=== PATIENT | male | born 1965 | race Caucasian/White ===

== ENCOUNTER 2019-05-02 15:14 | Emergency (ER) | payer MEDICARE ==
[~2019-05-02] VITALS: Ht 170.2 cm; Wt 99.8 kg
[2019-05-02] MEDS ORDERED: NOHOMEMEDICATIONS (15:27)
[2019-05-02] MEDS ORDERED: KEFLEX500 M1 PO (15:37)
[2019-05-02] MEDS ORDERED: TYLENOL WITH CO1 TA1 PO (16:20)
[2019-05-02 16:50] VITALS: BP 140/60
== END 2019-05-02 16:51 | disposition home or self-care (01) ==
LOC: M.ERS 15:14
PROC: 0HDQXZZ Extraction of Finger Nail, External Approach (ICD-10-PCS; principal; 2019-05-02)
DX: S61.101A Unspecified open wound of right thumb with damage to nail, initial encounter (principal); F17.210 Nicotine dependence, cigarettes, uncomplicated; X58.XXXA Exposure to other specified factors, initial encounter; Y93.89 Activity, other specified; Y92.89 Other specified places as the place of occurrence of the external cause; Y99.8 Other external cause status

== ENCOUNTER 2020-01-01 08:46 | Emergency (ER) | payer MEDICARE ==
[~2020-01-01] VITALS: Ht 170.2 cm; Wt 99.8 kg
[~2020-01-01 08:46] MED LIST: KEFLEX500 M1 PO; NOHOMEMEDICATIONS; TYLENOL WITH CO1 TA1 PO
[2020-01-01 09:24] VITALS: BP 133/91
== END 2020-01-01 09:25 | disposition home or self-care (01) ==
LOC: M.ERS 08:46
DX: R10.12 Left upper quadrant pain (principal); F17.210 Nicotine dependence, cigarettes, uncomplicated

== ENCOUNTER 2020-04-08 03:45 | Emergency (ER) | payer MEDICARE ==
[~2020-04-08] VITALS: Ht 170.2 cm; Wt 104.3 kg
[2020-04-08] MEDS ORDERED: FLEXERIL PO (04:16)
[2020-04-08] MEDS ORDERED: NORCO 5-325 TA1 EAC2 PO (04:16)
[2020-04-08] MEDS ORDERED: BACTRIM DS TAB1 EACH PO (04:16)
[2020-04-08 04:25] VITALS: BP 122/67
== END 2020-04-08 04:25 | disposition home or self-care (01) ==
LOC: M.ERS 03:45
DX: M54.6 Pain in thoracic spine (principal)

== ENCOUNTER 2020-05-02 13:08 | Emergency (ER) | payer MEDICARE ==
[~2020-05-02] VITALS: Ht 170.2 cm; Wt 102.1 kg
[~2020-05-02 13:08] MED LIST changes: +BACTRIM DS TAB1 EACH PO; +FLEXERIL PO; +NORCO 5-325 TA1 EAC2 PO
[2020-05-02] MEDS ORDERED: NORCO 5-325 TA1 EAC2 PO (14:00)
[2020-05-02 14:30] VITALS: BP 128/75
== END 2020-05-02 14:30 | disposition home or self-care (01) ==
LOC: M.ERS 13:08
DX: M54.6 Pain in thoracic spine (principal)

== ENCOUNTER 2020-05-31 16:12 | Inpatient (IN) | payer MEDICARE ==
[~2020-05-31] VITALS: Ht 170.2 cm; Wt 95.3 kg
[2020-05-31 16:15] VITALS: BP 137/75
[2020-05-31] MEDS ORDERED: BAYER BACK & B1 EACH PO (16:21)
[2020-05-31 16:37] LABS: ABSOLUTE BASOPHILS 0.1 thou/uL (0.0-0.2); ABSOLUTE EOSINOPHILS 0.1 thou/uL (0.0-0.7); ABSOLUTE LYMPHOCYTES 1.6 thou/uL (0.8-5.3); ABSOLUTE MONOCYTES 0.5 thou/uL (0.0-1.2); ABSOLUTE NEUTROPHILS 4.5 thou/uL (1.6-8.1); EOSINOPHILS 1.2 %; HEMATOCRIT 41.3 % (42.0-52.0); LYMPHOCYTES 23.6 %; MCHC 33.9 g/dL (28.0-37.0); MCV 94.4 fL (80.0-100.0); MONOCYTES 7.7 %; MPV 9.3 fl. (7.2-11.1); NUCLEATED RBCS 0 /100WBC; PLATELET COUNT* 151 thou/uL (150-400); POLYS 66.5 %; RBC 4.38 mil/uL (4.50-6.00); RDW-CV 15.6 % (10.5-14.5); WBC 6.7 thou/uL (4.0-11.0)
[2020-05-31 16:52] LABS: CALCIUM 8.3 mg/dL (8.5-10.1); CREATININE 1.1 mg/dL (0.6-1.3); POTASSIUM 3.1 mmol/L (3.5-5.1)
[2020-05-31 16:55] LABS: APTT 29.3 Seconds (25.0-31.3); INR 1.1; PROTIME 11.2 Seconds (9.20-11.50)
[2020-05-31 17:02] LABS: ALBUMIN 3.5 g/dL (3.4-5.0); TOTAL BILIRUBIN 0.8 mg/dL (<0.1-1.0); TOTAL PROTEIN 7.5 g/dL (6.4-8.2)
[2020-05-31 18:15] LABS: URINE BILIRUBIN NEGATIVE (Negative); URINE BLOOD NEGATIVE (Negative); URINE CLARITY CLEAR; URINE COLOR YELLOW; URINE GLUCOSE-RANDOM NEGATIVE (Negative); URINE KETONES 2+ (Negative); URINE LEUKOCYTES-REFLEX NEGATIVE (Negative); URINE NITRITE-REFLEX NEGATIVE (Negative); URINE PROTEIN NEGATIVE (Negative); URINE SPECIFIC GRAVITY 1.015 (1.005-1.030); URINE UROBILINOGEN 0.2 E.U./dl (0.2-1.0)
[2020-05-31 21:10] VITALS: BP 112/72
--- NOTE | 2020-06-01 04:18 | NUR ---
PT ADMIT TO ROOM 220. ALERT ORIENTED. WALKER WEAKNESS REPORTED THAT HAS BEEN INCREASING OVER SEVERAL WEEKS. ADMIT K+ WAS 3.1. POTASSIUM 40MEQ GIVEN TWICE. PT HAVING ABD PAIN MOVING DOWN LEGS. MORPHINE GIVEN FOR PAIN WITH GOOD RELIEF REPORTED 2 AFTER MEDICATION. TELEMETRY SHOWS SB/SR. VOIDS PER URINAL.
[2020-06-01 08:00] VITALS: BP 114/73
--- NOTE | 2020-06-01 11:58 | EKG ---
[place] [address] ELECTROCARDIOGRAM REPORT Name: DIANA DE PAZ III Room: [address] ADM IN [facility].#: [id number] Admission: 05/31/20 Attend Phys: Mark Ceron, Discharge: Date of : 65 Date of Service: 05/31/20 1617 Report #: [id number] THIS REPORT FOR: //name// [facility] ED Test Date: 2020-05-31 Test Time: 16:17:44 Pat Name: DIANA DE PAZ Department: Room: 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[place] : 1965 Requested By: Nixon Tejeda Order Number: [id number] MD: José Manuel Mitchell Measurements Intervals [place] Rate: 68 P: 19 GA: 175 QRS: 4 QRSD: 87 T: 56 QT: 397 QTc: 423 Interpretive Statements Sinus rhythm Baseline wander in lead(s) V1 No previous ECG available for comparison Electronically Signed On 06-01-2020 11:58:07 [employer] by José Manuel Mitchell [email or web address] <ELECTRONICALLY SIGNED> By: José Manuel Mitchell MD, [facility] 06/01/20 1158 1617 1617 José Manuel Mitchell MD, [facility] /EPI
[2020-06-01 12:26] VITALS: BP 124/74
[2020-06-01 16:58] VITALS: BP 135/83
--- NOTE | 2020-06-01 17:20 | NUR ---
ASSUMED PT CARE AT 0730, PT AOX4, NO C/O PAIN INITIALLY BUT HAD C/O PAIN THIS AFTERNOON TREATED W/ PRN MORPHINE W/ RELIEF. PT STATES BACLOFEN HELPS SIGNIFICANTLY WELL. PT MOVES SELF IN BED BUT STATES HE IS UNABLE TO WALK RIGHT NOW R/T TINGLING AND DECREASED FEELING IN LE'S ALONG W/ WEAKNESS. PT MOM IN ROOM THIS AFTERNOON AND UPDATED ON POC. MULTIPLE MRI'S ORDERED TODAY, SPOKE W/ DR. MATHUR WHO WANTS THEM PUSHED OFF UNTIL TOMORROW R/T NON-EMERGENT STATUS. PT GOAL IS TO KEEP PAIN UNDER CONTROL. AM ASSESSMENT CHARTED, MEDS PER SEP, HOURLY ROUNDING OBSERVED, FALL PRECAUTIONS IN PLACE, CALL LIGHT W/IN REACH.
[2020-06-01 23:57] VITALS: BP 112/74
--- NOTE | 2020-06-02 05:01 | NUR ---
ASSUMED PT CARE AT APPROX 1930. PT IS AWAKE AND ORIENTED X4. PT IS NOT IN DISTRESS. 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 PT C/O UPPER R/L QUAD ABDOMINAL PAIN AND LOWER BACK PAIN RELIEVED BY PAIN MEDS GIVEN PER MAR. NO ACUTE CHANGES THIS SHIFT. CALL LIGHT WITHIN REACH. HOURLY ROUNDING DONE FOR PT SAFETY. FALL PRECAUTIONS IN PLACE.
[2020-06-02 05:38] VITALS: BP 114/78
--- NOTE | 2020-06-02 07:44 | CON ---
[address] [address] CONSULTATION Name: DIANA DE PAZ III Room: [address] IN .R.#: [id number] Admission: 05/31/20 Attend Phys: Mark Ceron MD Discharge: Date of : 65 Report #: [id number] THIS REPORT FOR: //name// cc: Mark Wagner James B. DO ~ DATE OF SERVICE: 06/01/2020 REQUESTING PHYSICIAN: Dr. Ceron INDICATION FOR CONSULTATION: Lung mass. HISTORY OF PRESENT ILLNESS: A 55-year-old gentleman with past medical history as mentioned below. He is an active smoker. He has a clinical history consistent with COPD, not previously diagnosed and it is possible that he has obstructive sleep apnea as well. The patient at this time is admitted with pain in his back as well as abdomen and band like sensation in the abdomen as well as weakness and tingling in his lower extremities. The patient does have some respiratory complaints as well. He does have some shortness of breath at rest as well as increased with exertion and he does have a calf without much sputum production. These complaints; however, are at baseline. The patient does not appear to be primarily concerned about his respiratory complaints. He does not have any upper respiratory complaints and he has not had any fever or chills. He also does not describe any change in his bowel habits, nausea, vomiting, diarrhea or constipation. He does not describe urinary complaints. REVIEW OF SYSTEMS: For 10 points is negative except as mentioned above. PAST MEDICAL HISTORY: Wrist as well as a clavicle and arm fractures. There is a clinical history consistent with, not previously diagnosed. SOCIAL HISTORY: Extensive history of smoking 2 packs a day more than 40 years, still smokes. No known history of heavy alcohol use or illegal drug use. ALLERGIES: No known drug allergies. CURRENT MEDICATIONS: List in [employer] reviewed. HOME MEDICATIONS: List in [employer] reviewed. FAMILY HISTORY: Father also had lung cancer. PHYSICAL EXAMINATION: GENERAL: He is alert, awake and oriented. VITAL SIGNS: Has a pulse of 63 and a blood pressure of 135/83. [place] [address] CONSULTATION Name: BALDEVDIANALAURENCE Henriquez III Room: [address]#: [id number] Admission: 05/31/20 Attend Phys: Mark Ceron MD Discharge: Date of : 65 Report #: [id number] with a temperature of 36.7. He is saturating 96%. He is not on supplemental oxygen. HEENT: Head is normocephalic and atraumatic. Pupils are equal and reactive. There is no throat erythema. NECK: Does not show raised JVP, asymmetry, mass or lymph nodes. CHEST: Symmetrical expansion on inspection and palpation. On auscultation, breath sounds are bilaterally equal, but decreased. I do not hear any added sounds. HEART: Regular. There is no murmur. ABDOMEN: Soft. He complains of vague discomfort and palpation of abdomen. EXTREMITIES: Lower extremities show no edema, no calf tenderness. SKIN: Dry and intact. NEUROLOGICAL: He did move all extremities bilaterally equally and spontaneously. No motor deficit identified. LABORATORY DATA: The patient's CT chest is in [facility] reviewed. I reviewed both the films as well as report. He has had several other imaging performed as well. I reviewed all of those reports. I reviewed his chest x-ray film myself as well. Lab work is in [facility] and this is also reviewed. ASSESSMENT AND PLAN: 1. Lung mass/liver masses/a suspicion of metastatic malignancy. While other etiologies are still possible as well, the patient's presentation is unfortunately most consistent with a metastatic non-small cell carcinoma of the lung. Mass in the left lung is fairly large in size and it should be possible to biopsy this using a CT-guided biopsy technique; however, this is located fairly deep in the lung and this is therefore likely to result in a pneumothorax if the biopsy is performed. If we do perform a CT-guided biopsy, the patient may therefore subsequently need a chest tube for a few days if the pneumothorax is off a significant size. We will therefore explore if there is another way to obtain tissue diagnosis. The patient also is in significant pain at this time, which does need to be controlled first. There are various MRI ordered by other services. We will await results. We will subsequently review with the interventional radiologist regarding the best approach to obtaining a tissue diagnosis. Potentially a liver biopsy could be considered if no additional amenable lesions are seen on the workup, which is pending. 2. Back pain/abdominal pain. I understand that suspicion at this time is that this is secondary to metastatic disease, possibly to the spine. We will await workup. The patient regardless will benefit from a PET scan as an outpatient. 3. Smoker/suspected chronic obstructive pulmonary disease. Plan PFTs later. We will start nebulized bronchodilators if the patient has more respiratory complaints. [address] [address] CONSULTATION Name: BALDEVDIANALAURENCE Henriquez III Room: [address] IN M.R.#: [id number] Admission: 05/31/20 Attend Phys: Mark Ceron MD Discharge: Date of : 65 Report #: [id number] 4. Hypokalemia. Potassium has been replaced. We will repeat labs and we will replace potassium and check magnesium and also replace if indicated. Thanks for this consultation. <ELECTRONICALLY SIGNED> By: David Hoang MD 06/02/20 0744 1718 Antonette Hoang MD /nt
[2020-06-02 08:00] VITALS: BP 121/74
--- NOTE | 2020-06-02 10:02 | NUR ---
CM SPOKE TO THE PT TO DISCUSS CM ASSESSMENT. PT A&O. PT NORMALLY INDEPENDENT WITH ADL'S, AND ACTIVE. PT RESIDES AT HOME WITH HIS MOTHER AND MOST RECENTLY SHE HAS BEEN ASSISTING THE PT WITH MOBILITY HE HAS BEEN WEAK. PT HAS BEEN USING A CANE FOR MOBILITY.PT HAS 0 HX OF HH OR SNF. CM WILL REMAIN AVAILABLE TO ASSIST AND FOLLOW NEEDED.
[2020-06-02 12:27] VITALS: BP 123/73
[2020-06-02 14:10] LABS: ABSOLUTE BASOPHILS 0.1 thou/uL (0.0-0.2); ABSOLUTE EOSINOPHILS 0.1 thou/uL (0.0-0.7); ABSOLUTE LYMPHOCYTES 1.5 thou/uL (0.8-5.3); ABSOLUTE MONOCYTES 0.5 thou/uL (0.0-1.2); ABSOLUTE NEUTROPHILS 4.4 thou/uL (1.6-8.1); BASOPHILS 1.3 %; EOSINOPHILS 1.3 %; HEMATOCRIT 42.4 % (42.0-52.0); HEMOGLOBIN 14.4 gm/dL (14.0-18.0); LYMPHOCYTES 23.1 %; MCH 31.9 pg (26.0-34.0); MCV 93.9 fL (80.0-100.0); MONOCYTES 7.1 %; MPV 9.7 fl. (7.2-11.1); NUCLEATED RBCS 0 /100WBC; PLATELET COUNT* 134 thou/uL (150-400); POLYS 67.2 %; RBC 4.52 mil/uL (4.50-6.00); RDW-CV 15.5 % (10.5-14.5); WBC 6.5 thou/uL (4.0-11.0)
[2020-06-02 15:06] LABS: ALBUMIN 3.3 g/dL (3.4-5.0); CALCIUM 8.8 mg/dL (8.5-10.1); CREATININE 0.8 mg/dL (0.6-1.3); POTASSIUM 3.4 mmol/L (3.5-5.1); TOTAL BILIRUBIN 1.1 mg/dL (<0.1-1.0); TOTAL PROTEIN 7.4 g/dL (6.4-8.2)
[2020-06-02 15:54] VITALS: BP 112/73
--- NOTE | 2020-06-02 18:59 | NUR ---
PT IS ALERT AND ORIENTED X4 PT CAN BECOME FRUSTRATED AND AGITATED EASILY PT HAS BEEN GIVEN EDUCATION ON DIAGNOSIS AND PT STILL STATES HE WANTS TO KNOW WHAT IS WRONG WITH HIM AND WHY HE HURTS SB/SR ON THE MONITOR BACLOFEN GIVEN SCHEDULED AND MORPHINE AVAILABLE PRN MRI DONE AND ONE TO BE DONE TOMORROW WELL NO BM YET TODAY AND REFUSED BM MEDS LIVER BIOPSY TO BE DONE ON 06/04 POSSIBLE TRANSFER TO A NEUROSURGEON AT [facility] WILL CONT TO MONITOR
[2020-06-02 20:00] VITALS: BP 99/61
[2020-06-03 00:20] VITALS: BP 118/63
--- NOTE | 2020-06-03 04:12 | NUR ---
ASSUMED PT CARE AT APPROX 1930. PT IS AWAKE AND ORIENTED X4. 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 PT C/O BACK PAIN RELIEVED BY PAIN MEDICINE GIVEN PER SEP. NEURO ASSESSMENT DONE CHARTED. PT IS ABLE TO URINATE AND IS CONTINENT OF BLADDER. NO BOWEL MOVEMENT THIS SHIFT. NO ACUTE CHANGES THIS SHIFT. CALL LIGHT WITHIN REACH. HOURLY ROUNDING DONE FOR PT SAFETY. HIGH FALL PRECAUTIONS IN PLACE.
[2020-06-03 04:14] VITALS: BP 114/70
--- NOTE | 2020-06-03 04:49 | NUR ---
TYPEWRITER REPAIRER FROM [facility] REACHED OUT AND REPORTED THAT DR MARTINEZ REVIEWED SCANS AND PT INFORMATION; RECOMMENDS FOLLOW UP WITH [facility] FOR A CARIO-THORASIC SURGEON R\T NOTED MASS; REPORTED TO PTS NIGHT TIME RN.
--- NOTE | 2020-06-03 08:00 | NUR ---
ASSUMED CARE OF PT THIS AM PT IS ALERT AND ORIENTED BUT GETS FRUSTRATED EASILY MRI TO BE DONE THIS AM NO BM YET WANTED TO TAKE MEDS AFTER MRI PT DOES NOT GET UP AND C/O TINGLING NUMBNESS TO BLE WORSE ON THE LEFT SIDE USES URINAL NO S/SX OF RETENTION SR ON THE MONITOR CALL LIGHT IN REACH WILL CONT TO MONITOR
[2020-06-03 08:09] VITALS: BP 114/63
[2020-06-03 11:34] VITALS: BP 114/63
[2020-06-03 12:12] VITALS: BP 98/64
--- NOTE | 2020-06-03 12:36 | NUR ---
[facility]. CM INFORMED BY THE PHYSICIAN OF THE NEED TO CONTINUE TO ATTEMPT TRANSFER FOR PT TO [facility] PER [facility] NEUROSURGEON RECOMMENDATION FOR CARDIO-THORASIC SX. CM SPOKE TO DR. NDIAYE TO INFORM OF [facility] REQUEST TO CONNECT HIM ROBERT WITH DR. PITTMAN. DR. NDIAYE DEFERRED TO HOSPITALIST AND INFORMS THAT THPT WILL NEED NEUROSURGERY WITH CARDIO-THORASIC SX BACKUP. [facility] DOES NOT HAVE THIS CAPABILITY. CM SPOKE TO [facility] TRANSFER TEAM AND THEY INFORM THAT AT THIS TIME [facility] AND [facility] BOTH HAVE BED AVAILABILITY AND WILL SEND INFO TO BOTH. [facility] TRANSFER TEAM TO RETURN CALL TO TO DETERMINE ABILITY TO ACCEPT PT. [facility] TX TEAM PHONE: [phone] FAX: [phone]
[2020-06-03 17:21] VITALS: BP 122/73
--- NOTE | 2020-06-03 18:20 | NUR ---
PT IS TO TRANSFER TO [facility] IN ROOM 702 GAVE REPORT TO BRIAN COLLINS IS ACCEPTING DR AMBULANCE SHOULD BE HERE WITHIN THE HOUR
== END 2020-06-03 18:56 | disposition short-term general hospital (02) | DRG 181 ==
LOC: M.ERS 16:12 → M.2W 18:40 → M.TBA-ER 18:40 → M.2W 21:15
PROVIDERS: Family Medicine; Internal Medicine Critical Care Medicine; ADMIT Internal Medicine; ATTEND Internal Medicine
DX: C78.02 Secondary malignant neoplasm of left lung (principal); G95.29 Other cord compression; C79.51 Secondary malignant neoplasm of bone; C78.7 Secondary malignant neoplasm of liver and intrahepatic bile duct; G89.3 Neoplasm related pain (acute) (chronic); E87.6 Hypokalemia; M62.830 Muscle spasm of back; F17.210 Nicotine dependence, cigarettes, uncomplicated; K59.00 Constipation, unspecified; J44.9 Chronic obstructive pulmonary disease, unspecified; Z20.828 Contact with and (suspected) exposure to other viral communicable diseases; Z79.82 Long term (current) use of aspirin; Z79.899 Other long term (current) drug therapy